=== PATIENT | male | born 1940 | race Caucasian/White ===

== ENCOUNTER 2022-07-11 13:32 | Emergency (ER) | payer OTHER, MEDICARE ==
[2022-07-11] MEDS ORDERED: Morphine 4 MG/ML VIAL ONE (15:28)
== END 2022-07-11 16:46 | disposition home or self-care (01) ==
LOC: ERS 13:32
DX: S42.032A Displaced fracture of lateral end of left clavicle, initial encounter for closed fracture (principal); I10 Essential (primary) hypertension; E78.5 Hyperlipidemia, unspecified; V89.2XXA Person injured in unspecified motor-vehicle accident, traffic, initial encounter
CPT/HCPCS: 76377; 96374; G0390; J2270